=== PATIENT | male | born 1980 | race Caucasian/White ===

== ENCOUNTER 2018-07-06 23:15 | Emergency (ER) | payer OTHER ==
--- NOTE | 2018-07-06 23:42 | EDPHY ---
General - History Smoking Status: Never smoked Time Seen by Provider: 07/06/18 23:34 Narrative: CHIEF COMPLAINT: Chest pain, shortness of breath HISTORY OF PRESENT ILLNESS: Patient presents with complaints of chest pressure and shortness of breath, as well as lightheadedness. The chest pressure is retrosternal and left-sided, just "below my heart."Started suddenly between 80 9:00 p.m. While watching television. Constant duration. [id number] and difficult for him to describe. Associated with a feeling of lightheadedness and shortness of breath. The lightheadedness is described as "almost blacking out,"and difficult for him to quantify or qualify. He also had a short period of diaphoresis. He has no exertional pain. No radiating pain. No lower extremity erythema edema or pain. He did recently travel from [place] early this week. No history of venous thrombolic event. No history of coronary artery disease. Family history positive for coronary artery disease and [place] in his father in his early 40s. No other associated complaints or modifying factors REVIEW OF SYSTEMS: 10 systems were reviewed and negative with the exception of the elements mentioned in the history of present illness. PCP: None currently SPECIALISTS: None PAST MEDICAL HISTORY: Orthopedic injuries PAST SURGICAL HISTORY: Orthopedic surgery SOCIAL HISTORY: Nonsmoker. Occasional alcohol. Occasional marijuana use. Works as a restaurant regional operations manager. FAMILY HISTORY: Noncontributory EXAMINATION: General Appearance: Alert, no distress Head: normocephalic, atraumatic Eyes: Pupils equal and round, no conjunctival pallor or injection ENT, Mouth: Mucous membranes moist Neck: Normal inspection, supple, non-tender Respiratory: Lungs are clear to auscultation Cardiovascular: Regular rate and rhythm. No murmur. Gastrointestinal: Abdomen is soft and nontender Back: non-tender, no bony abnormalities Neurological: A&O, nonfocal, normal gait Skin: Warm and dry, no rash no petechiae or purpura Extremities: Nontender, no pedal edema Psychiatric: Mood and affect normal DIFFERENTIAL DIAGNOSES: Including but not limited to acid reflux, orthostasis, near-syncope, dehydration , ACS, PE, pneumonia, pleurisy, pericarditis, esophagitis MDM: 11:40 p.m. Chest tightness and shortness of breath. Chest tightness started approximately 8:09 p.m. Tonight rest. Associated with diaphoresis and near-syncope but no exertional pain. Pain did not radiate. This is very vague for him and difficult to describe. He is well-appearing nontoxic. Vital signs are within normal limits. EKG has been obtained and reviewed by Dr. Caro. He is perc negative. Laboratory studies pending. Orthostatics will be obtained 11:50 p.m. Orthostatics are mildly positive with a heart rate change of 20 beats from supine to standing. IV fluid ordered. 12:15 a.m. Patient re-evaluated. He is still feeling somewhat lightheaded. Initial laboratory studies are negative including troponin by point of care testing. I discussed the case with Dr. Caro and she will assume care the patient at this time. Please see her note for final disposition. He remains awake and alert no acute distress, stable on teletypesetter monitor. Heart score: 0 pending troponin SUPERVISION: Patient was evaluated and examined in conjunction with my secondary supervising physician as documented. We have both examined the patient. (Deny Chowdary) ED PA DICTATION I evaluated and participated in the management of the patient. I also evaluated the patient independently. My co-signature indicates that I have reviewed this chart and I agree with the findings and plan of care as documented. My personal H&P findings include: 37-year-old male with past medical history significant for GERD, family history significant for early CAD, presents with chest pain which occurred while watching television and being involved in a patch in at discussion about politics. Here, he has normal vital signs, is well-appearing, has a normal heart and lung exam. I agree with the differential listed above. Here, labs were checked and were unremarkable. He was found to be orthostatic. EKG and chest x-ray were normal. I believe he is appropriate for discharge home. I suspect his pain could be related to GERD versus anxiety versus much less likely unstable angina. I will refer him to primary care for further testing if needed. (Klarissa Caro) - Diagnostics Imaging Results: Imaging Impressions Chest X-Ray 07/06/18 23:43 IMPRESSION: No evidence for acute cardiopulmonary abnormality. - Objective Vital Signs: Initial Vital Signs Temperature (C) 36.6 C 07/06/18 23:18 Heart Rate 68 07/06/18 23:18 Respiratory Rate 19 07/06/18 23:18 Blood Pressure 147/95 H 07/06/18 23:18 O2 Sat (%) 97 07/06/18 23:18 O2 Delivery Mode Room Air Allergies/Adverse Reactions: No Known Allergies Allergy (Unverified 07/06/18 23:17) Laboratory Results: Laboratory Results 07/06/18 23:34 07/06/18 23:34 07/06/18 07/06/18 07/06/18 23:39 23:34 23:34 WBC RBC Hgb Hct MCV MCH MCHC RDW Plt Count MPV Neut % (Auto) Lymph % (Auto) [place] % (Auto) Eos % (Auto) Baso % (Auto) Nucleat RBC Rel Count Absolute Neuts (auto) Absolute Lymphs (auto) Absolute Monos (auto) Absolute Eos (auto) Absolute Basos (auto) Absolute Nucleated RBC Immature Gran % Immature Gran # D-Dimer < 0.27 ug/mLFEU ug/mLFEU (0.00-0.50) Sodium 138 mEq/L mEq/L (135-145) Potassium 3.4 mEq/L mEq/L (3.3-5.0) Chloride 96 mEq/L L mEq/L (97-110) Carbon Dioxide 30 mEq/l mEq/l (22-31) Anion Gap 12 mEq/L mEq/L (8-16) BUN 19 mg/dL mg/dL (7-23) Creatinine 1.3 mg/dL mg/dL (0.7-1.3) Estimated GFR > 60 Glucose 96 mg/dL mg/dL (70-100) Calcium 10.0 mg/dL mg/dL (8.5-10.4) POC Troponin I 0.01 ng/mL ng/mL (0.00-0.08) 07/06/18 23:34 WBC 8.46 10^3/uL 10^3/uL (3.80-9.50) RBC 4.89 10^6/uL 10^6/uL (4.40-6.38) Hgb 15.6 g/dL g/dL (13.7-17.5) Hct 44.5 % % (40.0-51.0) MCV 91.0 fL fL (81.5-99.8) MCH 31.9 pg pg (27.9-34.1) MCHC 35.1 g/dL g/dL (32.4-36.7) RDW 11.9 % % (11.5-15.2) Plt Count 249 10^3/uL 10^3/uL (150-400) MPV 11.1 fL fL (8.7-11.7) Neut % (Auto) 52.8 % % (39.3-74.2) Lymph % (Auto) 34.6 % % (15.0-45.0) [place] % (Auto) 10.5 % % (4.5-13.0) Eos % (Auto) 1.3 % % (0.6-7.6) Baso % (Auto) 0.6 % % (0.3-1.7) Nucleat RBC Rel Count 0.0 % % (0.0-0.2) Absolute Neuts (auto) 4.46 10^3/uL 10^3/uL (1.70-6.50) Absolute Lymphs (auto) 2.93 10^3/uL 10^3/uL (1.00-3.00) Absolute Monos (auto) 0.89 10^3/uL H 10^3/uL (0.30-0.80) Absolute Eos (auto) 0.11 10^3/uL 10^3/uL (0.03-0.40) Absolute Basos (auto) 0.05 10^3/uL 10^3/uL (0.02-0.10) Absolute Nucleated RBC 0.00 10^3/uL 10^3/uL (0-0.01) Immature Gran % 0.2 % % (0.0-1.1) Immature Gran # 0.02 10^3/uL 10^3/uL (0.00-0.10) D-Dimer Sodium Potassium Chloride Carbon Dioxide Anion Gap BUN Creatinine Estimated GFR Glucose Calcium POC Troponin I Medications Given: Discontinued Medications Al Hydroxide/Mg Hydroxide (Maalox Susp) 30 ml PO ONCE ONE Stop: 07/06/18 23:50 Last Admin: 07/07/18 00:02 Dose: 30 ml Hyoscyamine Sulfate (Levsin, Hyomax-Sl) 0.25 mg PO ONCE ONE Stop: 07/06/18 23:50 Last Admin: 07/07/18 00:02 Dose: 0.25 mg Sodium Chloride (Ns) 1,000 mls @ 0 mls/hr IV EDNOW ONE; Wide Open PRN Reason: Protocol Stop: 07/07/18 00:01 Last Admin: 07/07/18 00:05 Dose: 1,000 mls Lidocaine (Lidocaine 2% Viscous) 15 ml PO ONCE ONE Stop: 07/06/18 23:50 Last Admin: 07/07/18 00:02 Dose: 15 ml Point of Care Test Results: Chemistry 07/06/18 23:39 POC Troponin I 0.01 ng/mL ng/mL (0.00-0.08) Departure - Departure Disposition: Home, Routine, Self-Care Clinical Impression: Dizziness Chest pain Qualifiers: Chest pain type: unspecified Qualified Code(s): R07.9 - Chest pain, unspecified Condition: Good Instructions: Chest Pain (ED) Additional Instructions: I recommend that you follow up with the primary care doctor listed below. You should return to the emergency department if your worse in any way. Referrals: Ras Kirkland DO [Doctor of Osteopathy] - As per Instructions
[2018-07-06] MEDS ORDERED: MAG HYDROX/AL HYDROX/SIMETH 30 ML UDCUP PO ONE (23:49)
[2018-07-06] MEDS ORDERED: LIDOCAINE 2% VISCOUS 15 ML UDCUP PO ONE (23:49)
[2018-07-06] MEDS ORDERED: HYOSCYAMINE SULFATE 0.125 MG TAB PO ONE (23:49)
[2018-07-06 23:57] LABS: PLATELET COUNT 249 10^3/uL (150-400)
[2018-07-07] MEDS ORDERED: NS 1,000 ML IV ONE
[2018-07-07 01:06] VITALS: BP 119/77
--- NOTE | 2018-07-07 06:58 | CPEKG ---
Test Reason : OPEN Blood Pressure : / mmHG Vent. Rate : 073 BPM Atrial Rate : 073 BPM P-R Int : 135 ms QRS Dur : 096 ms QT Int : 386 ms P-R-T Axes : 040 045 019 degrees QTc Int : 426 ms Sinus rhythm Confirmed by Klarissa Caro ([id number]) on 07/07/2018 6:57:33 AM Referred By: Confirmed By:Klarissa Caro
== END 2018-07-07 01:24 | disposition home or self-care (01) ==
DX: R07.9 Chest pain, unspecified (principal); R42 Dizziness and giddiness; E86.9 Volume depletion, unspecified
CPT/HCPCS: 84484-PO